=== PATIENT | female | born 1970 ===

== ENCOUNTER 2023-01-13 06:17 | Emergency (ER) | payer MEDICAID, SELFPAY ==
[2023-01-13 06:24] VITALS: BP 188/91; PULSE 73; RESP 17; TEMP 36.6; O2SAT 98; BMI 31.6
--- NOTE | 2023-01-13 06:29 | ECG_ITS ---
Test Reason : HTN Blood Pressure : / mmHG Vent. Rate : 067 BPM Atrial Rate : 067 BPM P-R Int : 190 ms QRS Dur : 090 ms QT Int : 392 ms P-R-T Axes : 069 039 -03 degrees QTc Int : 414 ms Artifact Normal sinus rhythm Normal ECG No previous ECGs available Referred By: Lennie Lin Electronically Signed By:Humberto Ward
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
[2023-01-13] MEDS: amLODIPine Besylate 10 MG TABLET PO (06:50)
[2023-01-13 06:51] VITALS: BP 158/91; PULSE 69; RESP 17; O2SAT 100
--- NOTE | 2023-01-13 07:28 | PC.NURSE ---
Alert and oriented. Denies any pain or discomfort. Main concern is getting script for BP meds upon discharge. BP elevated at 188/97, deneis chest pain or sob.
[2023-01-13 08:17] VITALS: BP 163/88; PULSE 106; RESP 18; O2SAT 99
[2023-01-13 09:12] LABS: Appearance Urine Clear; Color Urine Yellow; Glucose Urine UA Negative (Negative); Leukocyte Esterase Urine Trace (Negative); Nitrite Urine Negative (Negative); PH 5.5 (5.0-9.0); Specific Gravity - Urine <= 1.005 (1.005-1.025); UMIC TRIGGER UACC YES; Urine Blood Negative (Negative); Urine Ketones Negative (Negative); Urine Protein Negative (Neg-Trace)
[2023-01-13 09:22] LABS: Amphetamine Screen Urine Not Detected (Not Detect); Barbiturates, Urine Not Detected (Not Detect); Benzodiazepines Screen Urine Not Detected (Not Detect); Cannabinoid Screen Urine Not Detected (Not Detect); Cocaine Screen Urine Not Detected (Not Detect); Fentanyl, urine Not Detected (Not Detect); Opiate Screen Urine Not Detected (Not Detect); Phencyclidine Screen Urine Not Detected (Not Detect)
[2023-01-13 09:32] LABS: Bacteria Urine None Seen (None Seen); Granular Casts Urine Present; RBC Urine 0-2 /HPF (0-2); Squamous Epithelial Cell Urine 0-2 /HPF (0-2); WBC Urine 0-5 /HPF (0-5)
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
--- NOTE | 2023-01-13 15:45 | MHC.CARE ---
RAD TEAM completed and faxed the referral form for [facility]. RAD will follow up 01/14/23 to confirm receipt and inform patient that it was completed and received.
== END 2023-01-13 11:16 | disposition home or self-care (01) ==
PROVIDERS: Emergency Provider Emergency Medicine
DX: F41.9 Anxiety disorder, unspecified (principal); I10 Essential (primary) hypertension; Z91.141 Patient's other noncompliance with medication regimen due to financial hardship
CPT/HCPCS: 80307; 81001; 93005; 99284